=== PATIENT | male | born 1995 | race American Indian/Alaskan Native ===

== ENCOUNTER 2017-05-02 23:22 | Emergency (ER) | payer SELFPAY ==
[2017-05-02 23:39] VITALS: TEMP 98.3
[2017-05-02] MEDS ORDERED: Sodium Chloride 0.9% 1,000 ML IV ONE (23:39)
[2017-05-02 23:56] LABS: BASO # 0.1 K/uL (0.0-0.2); BASO % 0.4 % (0.0-2.0); EOS # 0.1 K/uL (0.0-0.7); EOS % 0.5 % (0.0-4.0); HEMATOCRIT 36.7 % (35.0-51.0); LYMPH # 2.5 K/uL (1.0-4.3); MEAN CELL VOLUME 87.3 fL (80.0-94.0); MEAN CORPUSCULAR HEMOGLOBIN 28.3 pg (27.0-31.0); MEAN CORPUSCULAR HGB CONC 32.4 g/dL (33.0-37.0); MEAN PLATELET VOLUME 8.6 fL (7.2-11.7); MONO # 1.2 K/uL (0.0-0.8); MONO % 9.6 % (0.0-10.0); RED CELL DISTRIBUTION WIDTH 13.2 % (11.5-14.5)
[2017-05-02] MEDS ORDERED: Sodium Chloride 0.9% 1,000 ML ONE (23:57)
[2017-05-02] MEDS ORDERED: Morphine 4 MG/ML VIAL ONE (23:57)
[2017-05-03 00:11] LABS: ALB/GLOB RATIO 1.6 (1.0-2.1); ALKALINE PHOSPHATASE 79 U/L (38-126); ALT/SGPT 33 U/L (21-72); AST/SGOT 58 U/L (17-59); BILIRUBIN,TOTAL 0.7 mg/dL (0.2-1.3); BLOOD UREA NITROGEN 8 mg/dL (9-20); CALCIUM 8.6 mg/dl (8.6-10.4); CARBON DIOXIDE 27 mmol/L (22-30); CHLORIDE 100 mmol/L (98-107); GFR AFRICAN-AMERICAN > 60; GLUCOSE,RANDOM 77 mg/dL (75-110); POTASSIUM 2.9 mmol/L (3.6-5.2); SODIUM 140 mmol/L (132-148); TOTAL PROTEIN 6.1 g/dL (6.3-8.3)
[2017-05-03] MEDS ORDERED: Oxycodone/Acetaminophen 5/325 mg Tab PO STA (00:29)
[2017-05-03] MEDS ORDERED: Potassium Chloride 10 mEq ER Tab PO STA (00:33)
[2017-05-03] MEDS ORDERED: Oxycodone/Acetaminophen 5/325 mg Tab ONE (00:34)
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
[2017-05-03] MEDS ORDERED: Potassium Chloride 20 mEq ER Tab PO ONE (00:38)
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
[2017-05-03 00:56] VITALS: BP 162/96; PULSE 55; RESP 16
[2017-05-03 00:58] VITALS: O2SAT 97
--- NOTE | 2017-05-03 20:20 | CARD ---
APPROVED REPORT EKG Measurement Heart [id number] <Conclusion> Normal sinus rhythm Normal ECG
== END 2017-05-03 01:07 | disposition home or self-care (01) ==
LOC: C.ER 23:22
DX: S02.2XXA Fracture of nasal bones, initial encounter for closed fracture (principal); Y00.XXXA Assault by blunt object, initial encounter; H11.33 Conjunctival hemorrhage, bilateral; E87.6 Hypokalemia
CPT/HCPCS: 70450; 70486; 80053; 85025; 93005; 96360; 99285; J7040